=== PATIENT | female | born 1990 | race Caucasian/White ===

== ENCOUNTER 2018-12-27 08:39 | Day surgery (SDC) | payer OTHER ==
[2018-12-24 17:10] LABS: CLARITY,URINE CLEAR (Clear); COLOR,URINE YELLOW (Yellow); GLUCOSE, URINE NEGATIVE (Neg); KETONES,URINE NEGATIVE (Neg); LEUKOCYTE ESTERASE ,URINE SMALL (Neg); NITRITES, URINE NEGATIVE (Neg); OCCULT BLOOD,URINE NEGATIVE (Neg); PH,URINE 5.5 (4.8-8.0); PROTEIN,URINE NEGATIVE (Neg); UROBILINOGEN,URINE 0.2 E.U/dL (0.2-1.0)
[2018-12-24 17:11] LABS: BASOPHILS % (AUTO) 0.3 % (0-1); EOSINOPHILS # (AUTO) 0.2 X10'3 (0-0.9); LYMPHOCYTES # (AUTO) 1.9 X10'3 (1.1-4.8); LYMPHOCYTES % (AUTO) 27.2 % (21-51); MEAN CORPUSCULAR HGB CONC 33.7 g/dL (33.0-36.5); MEAN CORPUSCULAR VOLUME 83.3 FL (78-98); MEAN PLATELET VOLUME 9.2 FL (7.4-10.4); MONOCYTES # (AUTO) 0.4 X10'3 (0-0.9); MONOCYTES % (AUTO) 6.5 % (2-12); NEUTROPHILS # (AUTO) 4.3 X10'3 (1.8-7.7); PRE OP HEMATOCRIT 38.3 % (35.0-45.0); PRE OP HEMOGLOBIN 12.9 g/dL (12.0-16.0); PRE OP PLATELET COUNT 203 X10'3 (140-440); RED CELL DISTRIBUTION WIDTH 13.7 % (11.5-14.5)
[2018-12-24 17:24] LABS: ALBUMIN 3.8 G/DL (3.4-5.0); ALKALINE PHOSPHATASE 109 IU/L (46-116); BLOOD UREA NITROGEN 11 MG/DL (7-18); BUN/CREATININE RATIO 13.4 (6.6-38.0); CALCIUM 9.1 MG/DL (8.5-10.1); CHLORIDE 103 MMOL/L (99-107); CREATININE 0.82 MG/DL (0.40-0.90); HCG SERUM QL NEGATIVE; PRE OP ALT 12 U/L (30-65); PRE OP ANION GAP 8 (8-16); PRE OP AST 12 U/L (10-37); PRE OP BILIRUB, TOTAL 0.3 MG/DL (0.0-1.0); PRE OP GLUCOSE 96 MG/DL (70-104); PRE OP POTASSIUM 3.7 MMOL/L (3.4-5.1); PRE OP SODIUM 139 MMOL/L (135-145); TOTAL PROTEIN 7.6 G/DL (6.4-8.2); eGFR 83 ML/MIN
[2018-12-24 17:26] LABS: BACTERIA,URINE NONE SEEN /HPF (Neg); RBC,URINE NONE SEEN /HPF (0-2); SQUAMOUS EPITHELIAL CELL,UR FEW /LPF (FEW); UA COLLECTION TYPE CLN CATCH MIDSTREAM; WBC,URINE 0-4 /HPF (0-4)
[~2018-12-27] VITALS: Ht 165.1 cm; Wt 85.0 kg
[2018-12-27] VITALS (7 sets, daily range): BP systolic 119–128; BP diastolic 60–77
[~2018-12-27 08:39] MED LIST: PREN1TAB75 PO; ceFOXitin 2 GM ADDvantage bag 100 ML IV ONE; ceFOXitin sod/dextrose 2g/50ml 50 ML IV ONE; famotidine 20mg tablet PO ONE; ringers solution, lacted 1,000 ML IV SCH
[2018-12-27] MEDS ORDERED: fentaNYL/PF 50MCG/1 ML 2ML syringe ONE (09:08)
[2018-12-27] MEDS ORDERED: midazolam 2 mg/2 ml injection ONE (09:08)
[2018-12-27] MEDS ORDERED: propofol inj 20 ML IV ONE (09:10)
[2018-12-27] MEDS ORDERED: dexamethasone sod phosphate 4mg/ml inj. ONE (09:10)
[2018-12-27] MEDS ORDERED: ondansetron/PF 4mg/2ml inj ONE (09:10)
[2018-12-27] MEDS ORDERED: LIDOcaine 2% (20mg/ml) 5ml vial ONE (09:10)
[2018-12-27] MEDS ORDERED: sevoflurane 250ml liquid IH ONE (09:27)
[2018-12-27] MEDS ORDERED: ringers solution, lacted 1,000 ML IV SCH (09:58)
[2018-12-27] MEDS ORDERED: proCHLORperazine 10 MG/2 ml inj IV PRN (10:00)
[2018-12-27] MEDS ORDERED: meperidine/PF 25mg/ml syringe IV PRN ×3 (10:00)
[2018-12-27] MEDS ORDERED: morphine 4 MG/ML inj SYRINge IV PRN ×2 (10:00)
[2018-12-27] MEDS ORDERED: ondansetron/PF 4mg/2ml inj IV PRN (10:00)
[2018-12-27] MEDS ORDERED: meperidine/PF 50mg/ml syringe ONE (10:10)
--- NOTE | 2018-12-27 10:25 | NUR ---
Received from OR via BED , accompanied by Anesthesiologist DR UP and report given by Anesthesiolgist. PATIENT WAKING UP, DENIES, V/S WNL, NEUROVASCULAR CHECKS INTACT, 20G PIV RUE, SCD ON, DEMABONDED TO LAP SIGHTS OF ABDOMEN AND WITH PERIPAD WITH SCANT DRAINAGE CDI.
--- NOTE | 2018-12-27 11:15 | NUR ---
PATIENT A&OX4, DENIES, V/S WNL, NEUROVASCULAR CHECKS INTACT, 20G PIV RUE D/C, SCD OFF, DERMABONDED TO LAP SIGHTS OF ABDOMEN AND WITH PERIPAD WITH SCANT DRAINAGE, I HAVE REVIEWED D/C INSTRUCTIONS WITH PATIENT AND FAMILY HAVE VERBALIZED UNDERSTANDING.PATIENT WAS D/C HOME WITH ALL BELONGINGS AND FAMILY GAVE TRANSPORT HOME.
== END 2018-12-27 11:15 | disposition home or self-care (01) ==
LOC: PAS 08:39
PROVIDERS: ATTEND Obstetrics & Gynecology Obstetrics
DX: N93.9 Abnormal uterine and vaginal bleeding, unspecified (principal); N84.2 Polyp of vagina; N84.0 Polyp of corpus uteri; N76.5 Ulceration of vagina; Z79.899 Other long term (current) drug therapy; Z72.89 Other problems related to lifestyle
CPT/HCPCS: 36415; 57135; 58558; 80053; 81001; 82948; 84703; 85025; 86885; 86900; 86901; 87088; J0694; J1100; J2001; J2175; J2250; J2405; J2704; J3010; J7030; A4355; A4618; A6258; A7000; J7120